=== PATIENT | female | born 1940 | race Caucasian/White ===

== ENCOUNTER 2016-09-26 11:49 | Emergency (ER) | payer OTHER ==
[~2016-09-26] VITALS: Ht 157.5 cm; Wt 83.7 kg
[2016-09-26 11:52] VITALS: TEMP 36.6; Ht 157.5 cm; Wt 83.7 kg
[2016-09-26] MEDS ORDERED: ATOR-24 PO (12:05)
[2016-09-26] MEDS ORDERED: MULT-190 PO (12:05)
[2016-09-26] MEDS ORDERED: CHOL1000 PO (12:05)
[2016-09-26] MEDS ORDERED: LISI40TA PO (12:05)
[2016-09-26] MEDS ORDERED: ASPI-435 PO (12:05)
[2016-09-26] MEDS ORDERED: DILT-113 PO (12:05)
[2016-09-26] MEDS ORDERED: HYDR12.56 PO (12:05)
[2016-09-26] MEDS ORDERED: CLOP1TAB15 PO (12:05)
[2016-09-26] MEDS ORDERED: ACET-1311 PO (12:07)
[2016-09-26 13:09] LABS: HEMATOCRIT 43.2 % (37-47); MEAN CELL VOLUME 88.9 fL (80-100); MEAN CORPUSCULAR HGB CONC 33.8 g/dl (32-36); MEAN PLATELET VOLUME 10.1 fL (7.4-10.4); PLATELET COUNT 285 K/uL (130-400); RED BLOOD COUNT 4.86 M/uL (4.2-5.4); WHITE BLOOD COUNT 13.44 K/uL (4.8-10.8)
[2016-09-26 13:22] LABS: PARTIAL THROMBOPLASTIN RATIO 1.2; PROTHROMBIN TIME (PATIENT) 10.7 SECONDS (9.0-12.0)
[2016-09-26 13:30] LABS: BUN/CREATININE RATIO 18.3 (10-20); CREATININE 0.84 mg/dl (0.60-1.20)
--- NOTE | 2016-09-26 14:17 | EMERGENCY ROOM VISIT NOTE ---
History Report prepared by Ana: Renetta Smith Under the Supervision of: Dr. Deena Kong D.O. First contact with patient: 12:23 Chief Complaint: NOSE BLEED (MINOR) Stated Complaint: NOSE BLEED - SHAKY - BLOOD PRESSURE History of Present Illness The patient is a 75 year old female who presents to the Emergency Room with complaints of a resolved nosebleed from the right side starting about 2 hours ago. She has a history of similar nosebleed occurring many years ago. She also reports shakiness and anxiety. She reports a high blood pressure this morning. She took her Plavix as prescribed this morning. She takes Plavix for a history of a stroke. The patient also has a history of hypertension. She also had diarrhea this morning. The patient denies headache, chest pain, shortness of breath, or any other complaints. Source of History: patient Onset: about 2 hours ago Position: nose Quality: other (nosebleed) Timing: resolved Associated Symptoms: + diarrhea, No SOB, No chest pain, No headache Review of Systems See HPI for pertinent positives & negatives. A total of 10 systems reviewed and were otherwise negative. Past Medical & Surgical Medical Problems: (1) Hypertension (2) Nosebleed (3) Stroke Family History Heart disease Hypertension Social History Smoking Status: Never Smoker Marital Status: Housing Status: lives with significant other Occupation Status: retired Current/Historical Medications Scheduled Acetaminophen (Tylenol), 325 MG PO DAILY Atorvastatin (Lipitor), 40 MG PO DAILY Cholecalciferol (Vitamin D3), 1 TAB PO DAILY Clopidogrel (Plavix), 75 MG PO DAILY Diltiazem Hcl Ext Rel (Tiazac), 180 MG PO DAILY Hydrochlorothiazide (Hctz), 12.5 MG PO DAILY Lisinopril (Zestril), 40 MG PO DAILY Ocuvite Preservision (Ocuvite Preservision), 1 TAB PO DAILY Allergies Coded Allergies: No Known Allergies (Unverified , 09/26/16) Physical Exam Vital Signs Date Time Temp Pulse Resp B/P Pulse Ox O2 Delivery O2 Flow Rate FiO2 09/26/16 15:42 75 16 179/92 96 Room Air 09/26/16 13:50 62 18 166/87 97 Room Air 09/26/16 11:52 36.6 76 18 156/94 96 Room Air Physical Exam HEENT: Head - normocephalic and atraumatic Pupils are equal, round, and reactive to light. Extraocular eye muscles are intact, and sclera are anicteric. Nose - Right nares had excoriation over the septum in the area Kiesselbach's plexus. Mouth - moist buccal mucosa. Oropharynx is nonerythematous and there is no tonsillar exudate or edema noted. Neck: Supple; no JVD, nuchal rigidity, cervical lymphadenopathy. Heart: Regular rate and rhythm. There is a normal S1 and S2 with no murmurs, clicks, or gallops appreciated. Lungs: Clear to auscultation bilaterally with no wheezes, rales, or rhonchi. Abdomen: Soft, completely nontender, nondistended, with good bowel sounds. There are no palpable pulsatile masses or hepatosplenomegaly. There is no guarding, rigidity, or rebound noted. Extremities: No evidence of cyanosis, clubbing, or edema. There are easily palpable peripheral pulses. Skin: warm and dry with good turgor and no rashes. Medical Decision & Procedures Laboratory Results 09/26/16 13:00 09/26/16 13:00 Test 09/26/16 13:00 Red Blood Count 4.86 M/uL (4.2-5.4) Mean Corpuscular Volume 88.9 fL (80-100) Mean Corpuscular Hemoglobin 30.0 pg (25-34) Mean Corpuscular Hemoglobin Concent 33.8 g/dl (32-36) RDW Standard Deviation 46.3 fL (36.4-46.3) RDW Coefficient of Variation 14.1 % (11.5-14.5) Mean Platelet Volume 10.1 fL (7.4-10.4) Prothrombin Time 10.7 SECONDS (9.0-12.0) Prothromb Time International Ratio 1.0 (0.9-1.1) Activated Partial Thromboplast Time 31.7 SECONDS (21.0-31.0) Partial Thromboplastin Ratio 1.2 Anion Gap 7.0 mmol/L (3-11) Est Creatinine Clear Calc Drug Dose 58.9 ml/min Estimated GFR () 79.4 Estimated GFR (Non- 68.5 BUN/Creatinine Ratio 18.3 (10-20) Calcium Level 10.0 mg/dl (8.5-10.1) Laboratory results per my review. ED Course 1223: Past medical records reviewed. The patient was evaluated in room B05. A complete history and physical exam was performed. Nasal Clip was removed and the bleeding had resolved. The patient had laboratory studies drawn as above. She was able to blow her nose with no significant bleeding. There was a small clot noted in the posterior oropharynx. The patient was able to gargle water and get rid of the clot. 1331: I reevaluated the patient who is resting comfortably. 1353: The patient's repeat blood pressure is 166/87. 1420: Upon reevaluation, the patient had a Kleenex in her right nares. She is bleeding again. The clamp was placed back on her nose for 20 minutes. 1505: I took the clamp off and the bleeding appears to have stopped again. 1515: Upon reevaluation, I took the clamp off and there is very mild oozing blood from the right nares. I discussed findings and results with her. She verbalized agreement of the treatment plan. She was discharged home. Medical Decision This is a 43 year old female who presents to the Emergency Room with a chief complaint of nosebleed. Differential diagnosis includes but is not limited to anxiety, hypertensive emergency, epistaxis, anemia. Her labs showed white blood cell count of 13.4, stable H&H, normal renal function and cogs, glucose 125. The patient is on Plavix and aspirin. She had an episode of epistaxis today and became quite anxious about this. She also had an episode of diarrhea. The patient may be suffering from an acute viral illness as the cause of her diarrhea. It seems that her blood pressure most likely went up because she was so anxious about the nose bleeding. This probably led to more nose bleeding. The bleeding has resolved. I have asked the patient to watch her blood pressure closely over the weekend. She is to avoid blowing her nose or putting anything in the nose or the weekend. If the bleeding starts again, she was discharged with the nasal clip to apply for 20 minutes at a time. Impression Primary Impression: Epistaxis Additional Impression: Anxiety Scribe Attestation The scribe's documentation has been prepared under my direction and personally reviewed by me in its entirety. I confirm that the note above accurately reflects all work, treatment, procedures, and medical decision making performed by me. Departure Information Dispostion Home / Self-Care Referrals Ren Funes M.D. (PCP) Forms HOME CARE DOCUMENTATION FORM, IMPORTANT VISIT INFORMATION, WORK / SCHOOL INSTRUCTIONS Patient Instructions Anxiety Body Response, My [facility], Nosebleed Additional Instructions Rest. Watch your BP over the weekend Dab the nose only. If it starts to bleed more heavily, hold pressure for 20 minutes at a time Return to the ER if bleeding remains heavy Problem Qualifiers
[2016-09-26 15:42] VITALS: BP 179/92; PULSE 75; O2SAT 96
== END 2016-09-26 15:46 | disposition home or self-care (01) ==
LOC: C.EDB 11:51
DX: R04.0 Epistaxis (principal); F41.9 Anxiety disorder, unspecified; I10 Essential (primary) hypertension; Z86.73 Personal history of transient ischemic attack (TIA), and cerebral infarction without residual deficits; Z79.899 Other long term (current) drug therapy; Z82.49 Family history of ischemic heart disease and other diseases of the circulatory system